=== PATIENT | male | born 1970 | race Two or more races ===

== ENCOUNTER 2019-04-23 14:30 | Emergency (ER) | payer SELFPAY ==
[~2019-04-23] VITALS: Ht 188 cm; Wt 86.2 kg
[2019-04-23 14:49] VITALS: BP 181/117
== END 2019-04-23 16:52 | disposition home or self-care (01) ==
LOC: ER 14:30
DX: S63.502A Unspecified sprain of left wrist, initial encounter (principal); S80.01XA Contusion of right knee, initial encounter; V43.52XA Car driver injured in collision with other type car in traffic accident, initial encounter; Y93.89 Activity, other specified; Y99.8 Other external cause status; Y92.410 Unspecified street and highway as the place of occurrence of the external cause
CPT/HCPCS: 71101; 73110; 73562

== ENCOUNTER 2020-06-20 10:00 | Inpatient (IN) | payer MEDICAID, OTHER ==
[~2020-06-20] VITALS: Ht 188 cm; Wt 74.0 kg
[2020-06-20] MEDS ORDERED: SODIUM CHLORIDE 0.9% 1,000 ML IV ONE ×2 (10:15)
[2020-06-20 10:28] LABS: Basophils # (auto) 0 10 ^3/uL (0-0.2); Basophils % (auto) 0.2 % (0.0-2.0); Eosinophils # (auto) 0 10 ^3/uL (0-0.8); Eosinophils % (auto) 0.1 % (0.0-7.0); Hematocrit 39.2 % (41.0-53.0); Hemoglobin 13.1 g/dL (13.5-17.5); Lymphocytes # (auto) 0.8 10 ^3/uL (0.4-5.4); Lymphocytes % (auto) 11.2 % (10.0-50.0); Mean Corpuscular Hemoglobin 30.3 pg (28.0-32.0); Mean Corpuscular Hgb Conc. 33.3 g/dL (32.0-36.0); Mean Corpuscular Volume 90.7 fL (80.0-100.0); Monocytes # (auto) 0.5 10 ^3/uL (0-1.3); Monocytes % (auto) 7.1 % (0.0-12.0); Neutrophils # (auto) 5.6 10 ^3/uL (1.6-8.6); Neutrophils % (auto) 81.4 % (37.0-80.0); Nucleated Red Blood Cells % 0.1 %; Platelet Count (auto) 343 10^3/uL (140-450); Red Blood Cells 4.32 10^6/uL (4.5-5.90); White Blood Cell 6.9 10^3/uL (4.4-10.8)
[2020-06-20 10:53] LABS: Albumin 3.2 g/dL (3.4-5.0); Anion Gap 10 (5-15); Blood Alcohol < 3.0 mg/dL (0-5); Blood Urea Nitrogen 13 mg/dL (7-18); Calcium 9.4 mg/dL (8.5-10.1); Carbon Dioxide 24 mmol/L (21-32); Chloride 105 mmol/L (98-107); Glucose 164 mg/dL (74-106); Potassium 3.6 mmol/L (3.5-5.1); Sodium 139 mmol/L (136-145)
[2020-06-20 10:57] LABS: Alanine Aminotransferase 14 U/L (16-61); Alkaline Phosphatase 92 U/L (45-117); Aspartate Aminotransferase 17 U/L (15-37); BUN/Creatinine Ratio 13.3; Bilirubin, Total 0.8 mg/dL (0.2-1.0); GFR African American 105 mL/min; GFR Non-African American 87 mL/min; Total Protein 7.8 g/dL (6.4-8.2)
[2020-06-20] MEDS ORDERED: MORPHINE SULF INJ 2 MG/ML SYRINGE 1ML IV PRN (13:00)
[2020-06-20] MEDS ORDERED: NITROGLYCERIN 0.4 MG SL TAB SL PRN (13:00)
[2020-06-20 13:54] LABS: Folate (Folic Acid) 7.84 ng/mL (5.38-24)
[2020-06-20] MEDS: HYDROcodone-ACET 5/325MG TAB PO PRN (14:12)
[2020-06-20] MEDS: FOLIC ACID 1 MG, MULTIPLE VITAMIN 10 ML, MAGNESIUM SULF SDV 50% 8 MEQ, THIAMINE INJ 100... INJ SCH ×5 (14:12)
[2020-06-20] MEDS: MORPHINE SULF INJ 2 MG/ML SYRINGE 1ML IV PRN ×2 (16:09→20:37)
[2020-06-20] MEDS ORDERED: ONDANSETRON HCL 4 MG/2 ML VIAL IV PRN (16:15)
[2020-06-20] MEDS ORDERED: LORazepam 2MG/ML-1ML VIAL IV PRN (18:45)
[2020-06-20] MEDS ORDERED: TEMAZEPAM 15 MG CAP PO ONE (21:45)
[2020-06-20] MEDS ORDERED: LORazepam 2MG/ML-1ML VIAL IV ONE (23:30)
[2020-06-20] MEDS ORDERED: diphenhdrAMINE HCL 50 MG/1 ML VL IV ONE (23:30)
[2020-06-20] MEDS ORDERED: HALOPERIDOL LACTATE 5 MG/ML INJ VIAL IM ONE (23:30)
[2020-06-21] MEDS ORDERED: diphenhdrAMINE HCL 50 MG/1 ML VL IV ONE (01:00)
[2020-06-21 04:09] VITALS: BP 135/97
[2020-06-21 09:00] VITALS: BP 170/96
[2020-06-21] MEDS: cefTRIAXone 1GM/50ML D5W 50 ML IV SCH (09:01)
[2020-06-21] MEDS ORDERED: HALOPERIDOL LACTATE 5 MG/ML INJ VIAL IM PRN (10:00)
[2020-06-21 11:27] LABS: Urine Bacteria NONE SEEN /hpf (None Seen); Urine Blood 1+ /uL (Negative); Urine Mucus FEW (None Seen); Urine Specific Gravity 1.017 (1.001-1.035); Urine WBC 1 /hpf (0 - 3)
[2020-06-21 11:48] LABS: Alcohol, Urine < 3.0 mg/dL (0-10); Amphetamine Screen, Urine NEGATIVE (NEGATIVE); Barbiturate Scree,Urine NEGATIVE (NEGATIVE); Benzodiazephine Screen, Urine NEGATIVE (NEGATIVE); Cannabinoid Screen, Urine POSITIVE (NEGATIVE); Cocaine Screen, Urine NEGATIVE (NEGATIVE); Opiate Scree,Urine NEGATIVE (NEGATIVE); Phencyclidine Screen, Urine NEGATIVE (NEGATIVE)
[2020-06-21 13:00] VITALS: BP 149/95
[2020-06-21] MEDS: FOLIC ACID 1 MG, MULTIPLE VITAMIN 10 ML, MAGNESIUM SULF SDV 50% 8 MEQ, THIAMINE INJ 100... INJ SCH ×5 (14:10)
[2020-06-21] MEDS: metroNIDAZOLE 500MG/100ML 100 ML IV SCH ×2 (14:10→21:21)
[2020-06-21 17:00] VITALS: BP 160/75
[2020-06-21] MEDS: FAMOTIDINE (10MG/ML) 2ML VL IV SCH (21:21)
[2020-06-21] MEDS: HYDROcodone-ACET 5/325MG TAB PO PRN (21:41)
[2020-06-21 21:44] VITALS: BP 135/72
[2020-06-21] MEDS: MORPHINE SULF INJ 2 MG/ML SYRINGE 1ML IV PRN (23:47)
[2020-06-22 04:41] VITALS: BP 150/92
[2020-06-22] MEDS: MORPHINE SULF INJ 2 MG/ML SYRINGE 1ML IV PRN ×4 (04:46→20:47)
[2020-06-22] MEDS: metroNIDAZOLE 500MG/100ML 100 ML IV SCH ×3 (05:17→21:52)
[2020-06-22 07:32] LABS: Cholesterol 213 mg/dL (< 200)
[2020-06-22 07:35] LABS: HDL Cholesterol 55 mg/dL (40-59); LDL Cholesterol 144 mg/dL (< 100); Triglycerides 76 mg/dL (< 150)
[2020-06-22] MEDS: cefTRIAXone 1GM/50ML D5W 50 ML IV SCH (08:32)
[2020-06-22 09:00] VITALS: BP 167/95
[2020-06-22] MEDS: FAMOTIDINE (10MG/ML) 2ML VL IV SCH ×2 (12:08→21:52)
[2020-06-22] MEDS ORDERED: GASTROGRAFIN 120 ML SOL ONE (12:21)
[2020-06-22 12:32] VITALS: BP 184/108
[2020-06-22] MEDS: FOLIC ACID 1 MG, MULTIPLE VITAMIN 10 ML, MAGNESIUM SULF SDV 50% 8 MEQ, THIAMINE INJ 100... INJ SCH ×5 (13:46)
[2020-06-22] MEDS ORDERED: ERGOCALCIFEROL 50,000 UNIT(1.25MG) CAP PO SCH (14:45)
[2020-06-22] MEDS ORDERED: LISINOPRIL 20 MG TAB PO ONE (14:45)
[2020-06-22] MEDS ORDERED: hydrALAZINE HCL 20 MG/ML VL IV PRN (14:45)
[2020-06-22] MEDS ORDERED: DEXTROSE (50%) 50ML SYRG IV PRN (14:45)
[2020-06-22 15:38] LABS: Hepatitis B Surface Antibody Negative
[2020-06-22 16:17] LABS: Hepatitis A Total Antibody Negative
[2020-06-22 16:36] LABS: Hepatitis B Core Total AB Negative; Hepatitis B Surface Antigen Negative (Negative); Hepatitis C Antibody Negative (Negative)
[2020-06-22 16:49] VITALS: BP 161/97
[2020-06-22] MEDS: ACCU-CHEK COMFORT CURVE STRIP VI SCH ×2 (17:54→21:52)
[2020-06-22] MEDS: InsuLIN REG 1unit/0.01ml Soln (100units/ml) SC SCH ×2 (17:55→21:53)
[2020-06-22] MEDS: HYDROcodone-ACET 5/325MG TAB PO PRN (18:31)
[2020-06-22 21:49] VITALS: BP 141/72
[2020-06-22] MEDS ORDERED: ATORVASTATIN 20 MG TAB PO SCH (22:00)
[2020-06-23] MEDS: MORPHINE SULF INJ 2 MG/ML SYRINGE 1ML IV PRN ×2 (00:50→05:43)
[2020-06-23] MEDS: HYDROcodone-ACET 5/325MG TAB PO PRN ×2 (02:45→08:21)
[2020-06-23 04:25] LABS: Basophils # (auto) 0 10 ^3/uL (0-0.2); Basophils % (auto) 0.3 % (0.0-2.0); Eosinophils # (auto) 0.1 10 ^3/uL (0-0.8); Eosinophils % (auto) 0.9 % (0.0-7.0); Lymphocytes # (auto) 1.2 10 ^3/uL (0.4-5.4); Lymphocytes % (auto) 22.1 % (10.0-50.0); Mean Corpuscular Hemoglobin 30.5 pg (28.0-32.0); Mean Corpuscular Hgb Conc. 34.2 g/dL (32.0-36.0); Monocytes # (auto) 0.4 10 ^3/uL (0-1.3); Monocytes % (auto) 8.1 % (0.0-12.0); Neutrophils # (auto) 3.7 10 ^3/uL (1.6-8.6); Neutrophils % (auto) 68.6 % (37.0-80.0); Nucleated Red Blood Cells % 0.1 %; Platelet Count (auto) 333 10^3/uL (140-450); Red Blood Cells 3.93 10^6/uL (4.5-5.90); Red Cell Distribution Width 15.2 % (11.8-14.3); White Blood Cell 5.4 10^3/uL (4.4-10.8)
[2020-06-23 04:38] LABS: INR 1.04 (0.9-1.15)
[2020-06-23 04:41] LABS: Potassium 3.1 mmol/L (3.5-5.1)
[2020-06-23 04:47] LABS: Albumin 2.9 g/dL (3.4-5.0); BUN/Creatinine Ratio 9.7; Bilirubin, Total 0.6 mg/dL (0.2-1.0); Calcium 8.6 mg/dL (8.5-10.1); Magnesium 2.5 mg/dL (1.6-2.6); Total Protein 6.9 g/dL (6.4-8.2)
[2020-06-23] MEDS: metroNIDAZOLE 500MG/100ML 100 ML IV SCH (05:43)
[2020-06-23 05:52] VITALS: BP 157/95
[2020-06-23] MEDS: ACCU-CHEK COMFORT CURVE STRIP VI SCH (06:40)
[2020-06-23] MEDS: InsuLIN REG 1unit/0.01ml Soln (100units/ml) SC SCH (06:41)
[2020-06-23 08:48] VITALS: BP 161/97
[2020-06-23] MEDS: cefTRIAXone 1GM/50ML D5W 50 ML IV SCH (09:20)
[2020-06-23] MEDS ORDERED: CHOLECALCIFEROL (VITD3) 2,000 UNIT CAP/TAB PO SCH (10:00)
[2020-06-23] MEDS ORDERED: POTASSIUM CHL 20 Meq TABLET PO ONE (10:00)
[2020-06-23] MEDS ORDERED: LISINOPRIL 20 MG TAB PO SCH (10:00)
[2020-06-23] MEDS: FAMOTIDINE (10MG/ML) 2ML VL IV SCH (11:51)
== END 2020-06-23 11:50 | disposition left against medical advice (07) | DRG 52 ==
LOC: ER 10:00 → TELE 10:01 → TELE-WESTW 06-21 02:36
PROVIDERS: ADMIT Nurse Practitioner Acute Care; ATTEND Internal Medicine
DX: G92 Toxic encephalopathy (principal); K56.0 Paralytic ileus; Z78.1 Physical restraint status; Z20.822 Contact with and (suspected) exposure to COVID-19; K80.20 Calculus of gallbladder without cholecystitis without obstruction; E55.9 Vitamin D deficiency, unspecified; I10 Essential (primary) hypertension; E78.5 Hyperlipidemia, unspecified; K57.30 Diverticulosis of large intestine without perforation or abscess without bleeding; T50.905A Adverse effect of unspecified drugs, medicaments and biological substances, initial encounter; Z53.29 Procedure and treatment not carried out because of patient's decision for other reasons; E11.9 Type 2 diabetes mellitus without complications; F17.200 Nicotine dependence, unspecified, uncomplicated; Z83.3 Family history of diabetes mellitus; Y92.89 Other specified places as the place of occurrence of the external cause
CPT/HCPCS: 36415; 70450; 71045; 72100; 74176; 74250; 78226; 80053; 80061; 80307; 80320; 81001; 82306; 82607; 82746; 82962; 83036; 83735; 84425; 84443; 84484; 85025; 85610; 86704; 86706; 86708; 86803; 87340; 87426; 95819; 96361; 96365; G0378; J0696; J1815; J3490

== ENCOUNTER 2023-06-12 20:50 | Emergency (ER) | payer MEDICAID ==
[~2023-06-12] VITALS: Ht 188 cm; Wt 113.0 kg
[2023-06-12] MEDS: IOHEXOL 300 MG/ML 100ML BOTTLE IJ ONE (21:08)
[2023-06-12 21:30] VITALS: PULSE 115; RESP 23; O2SAT 98
[2023-06-12] MEDS: CLINDAMYCIN 900MG IV 50 ML IV ONE (21:40)
[2023-06-12 21:55] LABS: Basophils # (auto) 0.1 10 ^3/uL (0-0.2); Basophils % (auto) 0.5 % (0.0-2.0); Eosinophils # (auto) 0 10 ^3/uL (0-0.8); Eosinophils % (auto) 0.1 % (0.0-7.0); Hematocrit 42.6 % (41.0-53.0); Hemoglobin 14.4 g/dL (13.5-17.5); Lymphocytes # (auto) 1.3 10 ^3/uL (0.4-5.4); Mean Corpuscular Hemoglobin 31.3 pg (28.0-32.0); Mean Corpuscular Hgb Conc. 33.7 g/dL (32.0-36.0); Mean Corpuscular Volume 92.9 fL (80.0-100.0); Monocytes # (auto) 0.8 10 ^3/uL (0-1.3); Monocytes % (auto) 5.8 % (0.0-12.0); Neutrophils # (auto) 12.2 10 ^3/uL (1.6-8.6); Neutrophils % (auto) 84.6 % (37.0-80.0); Red Blood Cells 4.59 10^6/uL (4.5-5.90); Red Cell Distribution Width 14.9 % (11.8-14.3); White Blood Cell 14.4 10^3/uL (4.4-10.8)
[2023-06-12 21:56] LABS: Rapid Strep A Screen-Throat Negative
[2023-06-12 22:09] LABS: Alanine Aminotransferase 10 U/L (7-40); Albumin 4.1 g/dL (3.2-4.8); Alkaline Phosphatase 109 U/L (46-116); Anion Gap 6 (5-15); Aspartate Aminotransferase < 8 U/L (13-40); BUN/Creatinine Ratio 8.8 (10.0-20.0); Blood Urea Nitrogen 12 mg/dL (9-23); Calcium 9.3 mg/dL (8.5-10.1); Carbon Dioxide 24 mmol/L (20-30); Chloride 100 mmol/L (98-107); Glucose 298 mg/dL (74-106); Sodium 130 mmol/L (136-145)
[2023-06-12 22:10] LABS: Bilirubin, Total 1.2 mg/dL (0.2-1.0); Total Protein 7.3 g/dL (5.7-8.2)
[2023-06-13] MEDS: KETOROLAC TROMETH 30 MG/ML 1ML VIAL IV ONE (00:05)
[2023-06-13] MEDS: methylPREDNISolone SOD SUCC 125 MG/2 ML VL IV ONE (00:05)
[2023-06-13] MEDS: SODIUM CHLORIDE 0.9% 1,000 ML IV ONE (00:06)
[2023-06-13 00:54] VITALS: BP 138/93; PULSE 108; RESP 12; TEMP 98.4; O2SAT 95
== END 2023-06-13 01:12 | disposition short-term general hospital (02) ==
LOC: ER 20:50
DX: J36 Peritonsillar abscess (principal); E11.9 Type 2 diabetes mellitus without complications; I10 Essential (primary) hypertension
CPT/HCPCS: 36415; 70491; 80053; 85025; 87070; 87880; 96361; 96365; 96375; 99285; J1885; J2930; J3490; J7030; Q9967

== ENCOUNTER 2023-11-15 17:18 | Inpatient (IN) | payer MEDICAID ==
[~2023-11-15] VITALS: Ht 188 cm; Wt 99.1 kg
[2023-11-15 17:40] LABS: Basophils # (auto) 0.1 10 ^3/uL (0-0.2); Basophils % (auto) 0.5 % (0.0-2.0); Eosinophils # (auto) 0 10 ^3/uL (0-0.8); Eosinophils % (auto) 0.3 % (0.0-7.0); Hematocrit 42.4 % (41.0-53.0); Hemoglobin 14.7 g/dL (13.5-17.5); Lymphocytes # (auto) 1.1 10 ^3/uL (0.4-5.4); Lymphocytes % (auto) 10.8 % (10.0-50.0); Mean Corpuscular Hemoglobin 31.6 pg (28.0-32.0); Mean Corpuscular Hgb Conc. 34.5 g/dL (32.0-36.0); Mean Corpuscular Volume 91.6 fL (80.0-100.0); Monocytes # (auto) 0.5 10 ^3/uL (0-1.3); Monocytes % (auto) 4.8 % (0.0-12.0); Neutrophils # (auto) 8.9 10 ^3/uL (1.6-8.6); Neutrophils % (auto) 83.6 % (37.0-80.0); Red Blood Cells 4.64 10^6/uL (4.5-5.90); Red Cell Distribution Width 14.1 % (11.8-14.3); White Blood Cell 10.6 10^3/uL (4.4-10.8)
[2023-11-15 17:54] LABS: INR 0.99 (0.9-1.15); Partial Thromboplastin Time 28.4 SEC (24.5-34.5); Prothrombin Time 10.5 sec (9.3-11.8)
[2023-11-15 18:13] LABS: Alanine Aminotransferase 13 U/L (7-40); Albumin 4.5 g/dL (3.2-4.8); Alkaline Phosphatase 104 U/L (46-116); Anion Gap 9 (5-15); Aspartate Aminotransferase 13 U/L (13-40); BUN/Creatinine Ratio 12.8 (10.0-20.0); Bilirubin, Total 0.7 mg/dL (0.2-1.0); Blood Urea Nitrogen 21 mg/dL (9-23); Calcium 10.1 mg/dL (8.7-10.4); Carbon Dioxide 26 mmol/L (20-30); Chloride 102 mmol/L (98-107); Glucose 354 mg/dL (74-106); Potassium 3.9 mmol/L (3.5-5.1); Sodium 137 mmol/L (136-145)
[2023-11-15 18:14] LABS: Total Protein 7.5 g/dL (5.7-8.2)
[2023-11-15] MEDS: MORPHINE SULFATE 4 MG/ML SYR/VIAL IV ONE (18:38)
[2023-11-15] MEDS: ONDANSETRON HCL 4 MG/2 ML VIAL IV ONE (18:41)
[2023-11-15] MEDS: ASPirin 325 MG TAB PO ONE (18:41)
[2023-11-15] MEDS: SODIUM CHLORIDE 0.9% 1,000 ML IV ONE ×2 (18:45→19:06)
[2023-11-15] MEDS: cloNIDine HCL 0.1 MG TAB PO ONE (19:27)
[2023-11-15 19:30] VITALS: PULSE 92; RESP 17; O2SAT 96
[2023-11-15] MEDS: InsuLIN REG 1unit/0.01ml Soln (100units/ml) IV ONE (19:41)
[2023-11-15] MEDS ORDERED: HYDROmorphone HCL 2 MG/ML VL/or syr IV PRN (19:45)
[2023-11-15] MEDS ORDERED: NITROGLYCERIN 0.4 MG SL TAB SL PRN (19:45)
[2023-11-15] MEDS ORDERED: MORPHINE SULFATE INJ 2 MG/ml SYRG IV PRN (19:45)
[2023-11-15] MEDS ORDERED: ONDANSETRON HCL 4 MG/2 ML VIAL IV PRN (19:45)
[2023-11-15] MEDS ORDERED: ACETAMINOPHEN 325 MG TAB PO PRN (19:45)
[2023-11-15] MEDS ORDERED: DEXTROSE (50%) 50ML SYRG IV PRN (19:45)
[2023-11-15] MEDS: ACETAMINOPHEN 325 MG TAB PO ONE (20:07)
[2023-11-15] MEDS: LACTATED RINGER'S 1,000 ML IV ONE (20:07)
[2023-11-15] MEDS: InsuLIN REG 1unit/0.01ml Soln (100units/ml) SC SCH (22:00)
[2023-11-15] MEDS: SODIUM CHLOR 0.9% PF (SALINE LOCK) 10ML VIAL/SYR IV SCH (22:00)
[2023-11-15] MEDS: ACCU-CHEK COMFORT CURVE STRIP VI SCH (22:00)
[2023-11-15] MEDS: HYDROcodone-ACET 5/325MG TAB PO PRN (22:50)
[2023-11-15 23:43] VITALS: BP 151/92; PULSE 63; PULSE 81; RESP 18; TEMP 98.1; O2SAT 96; O2SAT 98
[2023-11-15 23:50] VITALS: PULSE 84
[2023-11-15 23:52] LABS: Creatinine, Urine 141.55 mg/dL (30.0-125.0)
[2023-11-16] VITALS (8 sets, daily range): BP systolic 103–150; BP diastolic 36–98; PULSE 64–103; RESP 14–22; TEMP 97.6–98.9; O2SAT 92–99
[2023-11-16] MEDS: ENOXAPARIN SOD 40 MG/0.4 ML SYRINGE SC SCH (09:46)
[2023-11-16] MEDS: FAMOTIDINE 20 MG TAB PO SCH (09:46)
[2023-11-16 10:25] LABS: Chloride 106 mmol/L (98-107); Potassium 3.6 mmol/L (3.5-5.1); Sodium 139 mmol/L (136-145)
[2023-11-16 10:26] LABS: Anion Gap 4 (5-15); Calcium 9.8 mg/dL (8.7-10.4); Carbon Dioxide 29 mmol/L (20-30)
[2023-11-16 10:31] LABS: BUN/Creatinine Ratio 11.5 (10.0-20.0); Blood Urea Nitrogen 13 mg/dL (9-23); Triglycerides 91 mg/dL (< 150)
[2023-11-16 10:32] LABS: LDL Cholesterol 192 mg/dL (< 100)
[2023-11-16 10:33] LABS: Cholesterol 249 mg/dL (< 200); HDL Cholesterol 41 mg/dL (40-59)
[2023-11-16 10:35] LABS: Glucose 144 mg/dL (74-106)
[2023-11-16] MEDS: LISINOPRIL 5 MG TAB PO ONE (11:00)
[2023-11-16] MEDS: NIFEdipine ER 30 MG TAB PO SCH (11:26)
[2023-11-16 19:52] LABS: Urine Bacteria None Seen /hpf (None Seen)
[2023-11-16 20:14] LABS: Urine Blood Negative /uL (Negative); Urine Clarity Clear (Clear); Urine Color Light-Yellow (Yellow); Urine Hyaline Cast FEW /lpf (0 - 2); Urine Protein, UAD TRACE (Negative); Urine Specific Gravity 1.015 (1.001-1.035); Urine Urobilinogen 2 mg/dL (Negative); Urine WBC 5 /hpf (0 - 3); Urine pH 6.5 (5.0-9.0)
[2023-11-16 20:20] LABS: Sodium Urine 128 mmol/L (40-220)
[2023-11-16 20:25] LABS: Protein, Urine 19.2 mg/dL (0.0-11.9)
[2023-11-16 20:27] LABS: Amphetamine Screen, Urine Neg (NEGATIVE); Barbiturate Scree,Urine Neg (NEGATIVE); Benzodiazephine Screen, Urine Neg (NEGATIVE); Cannabinoid Screen, Urine Pos (NEGATIVE); Cocaine Screen, Urine Neg (NEGATIVE); Opiate Scree,Urine Neg (NEGATIVE); Phencyclidine Screen, Urine Neg (NEGATIVE)
[2023-11-16 20:28] LABS: Creatinine, Urine 138.57 mg/dL (30.0-125.0)
[2023-11-16] MEDS: CARVEDILOL 3.125 MG TAB PO ONE (20:48)
[2023-11-16] MEDS: MELATONIN 5 MG TAB PO ONE (22:01)
[2023-11-17 01:00] VITALS: BP 126/76; PULSE 92; RESP 20; TEMP 98.7; O2SAT 99
[2023-11-17 05:00] VITALS: BP 119/82; PULSE 77; RESP 20; TEMP 98.4; O2SAT 98
[2023-11-17 07:54] LABS: Basophils # (auto) 0 10 ^3/uL (0-0.2); Basophils % (auto) 0.4 % (0.0-2.0); Eosinophils # (auto) 0.1 10 ^3/uL (0-0.8); Eosinophils % (auto) 1.2 % (0.0-7.0); Hematocrit 41.5 % (41.0-53.0); Hemoglobin 14.4 g/dL (13.5-17.5); Lymphocytes # (auto) 1.7 10 ^3/uL (0.4-5.4); Lymphocytes % (auto) 25.3 % (10.0-50.0); Mean Corpuscular Hemoglobin 31.6 pg (28.0-32.0); Mean Corpuscular Hgb Conc. 34.7 g/dL (32.0-36.0); Mean Corpuscular Volume 91.1 fL (80.0-100.0); Monocytes # (auto) 0.4 10 ^3/uL (0-1.3); Monocytes % (auto) 6.3 % (0.0-12.0); Neutrophils # (auto) 4.6 10 ^3/uL (1.6-8.6); Neutrophils % (auto) 66.8 % (37.0-80.0); Nucleated Red Blood Cells % 0.1 %; Red Blood Cells 4.55 10^6/uL (4.5-5.90); Red Cell Distribution Width 14.1 % (11.8-14.3); White Blood Cell 6.9 10^3/uL (4.4-10.8)
[2023-11-17 08:00] VITALS: PULSE 78; PULSE 84; RESP 20
[2023-11-17 08:06] LABS: Alkaline Phosphatase 88 U/L (46-116); Anion Gap 8 (5-15); Aspartate Aminotransferase 10 U/L (13-40); Blood Urea Nitrogen 14 mg/dL (9-23); Calcium 9.7 mg/dL (8.7-10.4); Carbon Dioxide 26 mmol/L (20-30); Chloride 106 mmol/L (98-107); Glucose 140 mg/dL (74-106); Potassium 3.7 mmol/L (3.5-5.1); Sodium 140 mmol/L (136-145)
[2023-11-17 08:07] LABS: Alanine Aminotransferase 9 U/L (7-40); Albumin 4.1 g/dL (3.2-4.8); Bilirubin, Total 1.1 mg/dL (0.2-1.0); Total Protein 7.2 g/dL (5.7-8.2)
[2023-11-17 09:00] VITALS: BP 127/87; PULSE 96; RESP 20; TEMP 98.5; O2SAT 97
[2023-11-17] MEDS: CARVEDILOL 3.125 MG TAB PO SCH (09:41)
[2023-11-17] MEDS ORDERED: BLOO1KIT60 XX ×2 (09:44→10:45)
[2023-11-17] MEDS: LISINOPRIL 5 MG TAB PO SCH (10:00)
[2023-11-17] MEDS ORDERED: CARV-214 PO (10:45)
[2023-11-17] MEDS ORDERED: NIFE1TAB31 PO (10:45)
[2023-11-17] MEDS ORDERED: METF-929 PO (10:45)
[2023-11-17] MEDS ORDERED: LISI-275 PO (10:45)
[2023-11-17 13:16] VITALS: BP 116/75; PULSE 97; RESP 20; TEMP 99; O2SAT 98
== END 2023-11-17 15:00 | disposition home or self-care (01) | DRG 199 ==
LOC: ER 17:18 → TELE 19:39 → TELE-EAST 19:39
PROVIDERS: ADMIT Internal Medicine Geriatric Medicine; ATTEND Internal Medicine Geriatric Medicine
DX: I16.0 Hypertensive urgency (principal); N17.0 Acute kidney failure with tubular necrosis; I21.A1 Myocardial infarction type 2; E11.22 Type 2 diabetes mellitus with diabetic chronic kidney disease; E11.65 Type 2 diabetes mellitus with hyperglycemia; E78.5 Hyperlipidemia, unspecified; K21.9 Gastro-esophageal reflux disease without esophagitis; I25.10 Atherosclerotic heart disease of native coronary artery without angina pectoris; I70.1 Atherosclerosis of renal artery; F12.10 Cannabis abuse, uncomplicated; I12.9 Hypertensive chronic kidney disease with stage 1 through stage 4 chronic kidney disease, or unspecified chronic kidney disease; N18.9 Chronic kidney disease, unspecified; Z83.3 Family history of diabetes mellitus; Z80.0 Family history of malignant neoplasm of digestive organs; D35.00 Benign neoplasm of unspecified adrenal gland
CPT/HCPCS: 36415; 71045; 76775; 80048; 80053; 80061; 80307; 81001; 82533; 82570; 82962; 83036; 83835; 83880; 84156; 84300; 84443; 84484; 85025; 85610; 85730; 93005; 93306; 93976; 96361; 96374; 96375; G0378; J1815; J2405

== ENCOUNTER 2024-05-30 17:31 | Emergency (ER) | payer MEDICAID ==
[~2024-05-30] VITALS: Ht 188 cm; Wt 91.0 kg
[~2024-05-30 17:31] MED LIST: BLOO1KIT60 XX; CARV-214 PO; LISI-275 PO; METF-929 PO; NIFE1TAB31 PO
--- NOTE | 2024-05-30 17:37 | ECG ---
[facility] Test Date: 2024-05-30 Test Time: 17:36:29 Pat Name: LUH PATEL Department: ER Room: Gender: M Tank Washer: KRISTINA : 1970 Requested By: BILLY SOLORZANO Order Number: [id number] Reading MD: Measurements Intervals [place] Rate: 95 P: 57 RI: 142 QRS: 26 QRSD: 84 T: 81 QT: 341 QTc: 429 Interpretive Statements Sinus rhythm Please click the below link to view image of tracing.
[2024-05-30] MEDS: NITROGLYCERIN 2% OINT 1GM PKG TD ONE (18:02)
[2024-05-30 18:05] LABS: Basophils # (auto) 0 10 ^3/uL (0-0.2); Basophils % (auto) 0.4 % (0.0-2.0); Eosinophils # (auto) 0.1 10 ^3/uL (0-0.8); Eosinophils % (auto) 1.4 % (0.0-7.0); Hematocrit 44.9 % (41.0-53.0); Hemoglobin 15.6 g/dL (13.5-17.5); Lymphocytes # (auto) 2.6 10 ^3/uL (0.4-5.4); Lymphocytes % (auto) 28.4 % (10.0-50.0); Mean Corpuscular Hemoglobin 31.2 pg (28.0-32.0); Mean Corpuscular Hgb Conc. 34.7 g/dL (32.0-36.0); Mean Corpuscular Volume 89.8 fL (80.0-100.0); Monocytes # (auto) 0.6 10 ^3/uL (0-1.3); Monocytes % (auto) 6.9 % (0.0-12.0); Neutrophils # (auto) 5.8 10 ^3/uL (1.6-8.6); Neutrophils % (auto) 62.9 % (37.0-80.0); Nucleated Red Blood Cells % 0.1 %; Platelet Count (auto) 291 10^3/uL (140-450); Red Cell Distribution Width 14.2 % (11.8-14.3); White Blood Cell 9.3 10^3/uL (4.4-10.8)
--- NOTE | 2024-05-30 18:43 | ED.PDOC ---
History of Present Illness HPI Comments 54 y/o M, with a DL, CKF, DM, GERD, HLD, HTN, STEMI, chronic pain syndrome, diverticulitis, and left renal artery stenosis, presents with c/o chest and LUQ abdominal pain, dizziness, nausea, bilateral hand and feet numbness, and fatigue for 1x week, today. Patient endorses on symptoms worsening and being no longer able to tolerate it, today, after initial gradual onset a week ago. He comments on pain being pressure-like in quality and kim to "someone sitting on his chest." He denies having any shortness of breath, vision or speech changes, vomiting, fever, chills, or other associated symptoms or modifiers at this time. Chief Complaint: Chest Pain Time Seen by MD: 18:20 Primary Care Provider: UNKNOWN Reviewed Notes: Nurses Notes, Medications, Allergies Allergies: Coded Allergies: NO KNOWN ALLERGIES (Unverified , 04/23/19) Home Meds Active Scripts Famotidine (PEPCID TABLET) 20 Mg Tb, 1 TAB PO BID PRN for 30 Days, #60 TAB 5 Re fills Prov:WILTON OSULLIVAN MD 05/30/24 Gabapentin (Once-Daily) (Gabapentin) 300 Mg Tab, 300 MG PO Q6HP PRN for 10 Days, #40 TAB 2 Refills Prov:WILTON OSULLIVAN MD 05/30/24 Lisinopril (Lisinopril) 5 Mg Tab, 5 MG PO DAILY for 30 Days, #30 TAB 3 Refills Prov:GIOVANI CATES RESIDENT 11/17/23 Carvedilol (COREG) 3.125 Mg Tab, 6.25 MG PO Q12HR for 30 Days, #60 TAB 3 Refills Prov:GIOVANI CATES RESIDENT 11/17/23 Nifedipine (Nifedipine Er) 30 Mg Tab, 60 MG PO DAILY for 30 Days, #60 TAB 3 Refills Prov:GIOVANI CATES 11/17/23 Metformin HCl (Metformin Hydrochloride) 1,000 Mg Tab, 1000 MG PO BID for 30 Days, #60 TAB 3 Refills Prov:GIOVANI CATES 11/17/23 Blood Glucose Monitoring Suppl (D-Care Glucometer Kit/Glu W/Device) 1 Kit Kit, KIT XX, #1 Measure Bloodglucose before eating Prov:GIOVANI CATES 11/17/23 Blood Glucose Monitoring Suppl (D-Care Glucometer Kit/Glu W/Device) 1 Kit Kit, KIT XX, #1 Prov:CHRISSY BAILON MD 11/17/23 Information Source: Patient Mode of Arrival: Ambulatory Severity: Moderate Timing: Weeks Duration: Since onset Prehospital treatment: None Past Medical History PAST MEDICAL HISTORY: CKF, DM, GERD, High Lipids, HTN, AR (NSTEMI) Past Medical History (Other): DL, chronic pain syndrome, diverticulitis, left renal artery stenosis Surgical History (Other): spinal surgery Family History Family History: Reviewed,noncontributory to illness Social History Smoker: Non-Smoker Alcohol: Denies ETOH Use Drugs: Marijuana Lives In: Home All Other Systems: Reviewed and Negative (negative unless otherwise stated in HPI) Physical Exam General Appearance: Mild Distress, No Apparent Distress, Normal HEENT: Normal ENT Inspection, Pharynx Normal, TMs Normal Neck: Full Range of Motion, Non-Tender, Normal, Normal Inspection Respiratory: Chest Non-Tender, Lungs Clear, No Accessory Muscle Use, No Respiratory Distress, Normal Breath Sounds Cardiovascular: No Edema, No JVD, No Murmur, No Gallop, Normal Peripheral Pulses, Regular Rate/Rhythm Breast Exam: Deferred Gastrointestinal: LUQ (tenderness), No Organomegaly, No Pulsatile Mass, Normal Bowel Sounds, Soft, Tenderness (LUQ), Other (no rebound and guarding ) Genitalia: Deferred Pelvic: Deferred Rectal: Deferred Extremities: No calf tenderness, Normal capillary refill, Normal inspection, Normal range of motion, Non-tender, No pedal edema Musculoskeletal : Apperance: Normal Neurologic: Alert, creative services designer II-XII nml as Tested, No Motor Deficits, Normal Affect, Normal Mood, No Sensory Deficits Cerebellar Function: Normal Reflexes: Normal Skin: Dry, Normal Color, Warm Lymphatic: No Adenopathy Was a procedure done? Was a procedure done?: No EKG EKG : Pulse Rate (adult): 95 [place]: Normal Cardiac Rhythm: NSR Block: None Hypertrophy: None ST: Normal Differential Dx Considerations may include: AR, PE, ACS, viral syndrome, URI, dehydrations, electrolyte imbalance, musculoskeletal pain, gastritis, gastroenteritis X-Ray, Labs, Meds, VS Vital Signs Date Time Temp Pulse Resp B/P (MAP) Pulse Ox O2 Delivery O2 Flow Rate FiO2 05/30/24 20:39 98.2 108 19 116/75 (89) 99 98.2 05/30/24 18:57 120/95 05/30/24 18:43 95 05/30/24 18:26 97.9 113 100 120/95 (103) 100 97.9 05/30/24 18:26 113 18 100 Room Air 05/30/24 18:02 180/108 05/30/24 17:43 98.2 93 20 181/108 (132) 100 05/30/24 17:36 95 Lab Test 05/30/24 19:04 05/30/24 18:46 05/30/24 17:44 Range/Units POC Glucose 138 H 70-106 mg/dl Sodium Level 125 L 136-145 mmol/L Potassium Level 4.4 3.5-5.1 mmol/L Chloride Level 95 L 98-107 mmol/L Carbon Dioxide Level 21 20-31 mmol/L Anion Gap 9 5-15 Blood Urea Nitrogen 19 9-23 mg/dL Creatinine 1.28 0.700-1.30 mg/dL Glomerular Filtration Rate Calc 67 >90 mL/min BUN/Creatinine Ratio 14.8 10.0-20.0 Serum Glucose 136 H 74-106 mg/dL Calcium Level 9.9 8.7-10.4 mg/dL Total Bilirubin 0.7 0.2-1.0 mg/dL Aspartate Amino Transferase (AST) 20 13-40 U/L Alanine Aminotransferase (ALT) 12 7-40 U/L Alkaline Phosphatase 74 46-116 U/L Troponin I High Sensitivity < 3 L < 3 L </=54 ng/L Total Protein 8.2 5.7-8.2 g/dL Albumin 4.9 H 3.2-4.8 g/dL Lipase 57 H 12-53 U/L White Blood Count 9.3 4.4-10.8 10^3/uL Red Blood Count 5.00 4.5-5.90 10^6/uL Hemoglobin 15.6 13.5-17.5 g/dL Hematocrit 44.9 41.0-53.0 % Mean Corpuscular Volume 89.8 80.0-100.0 fL Mean Corpuscular Hemoglobin 31.2 28.0-32.0 pg Mean Corpuscular Hemoglobin Concent 34.7 32.0-36.0 g/dL Red Cell Distribution Width 14.2 11.8-14.3 % Platelet Count 291 140-450 10^3/uL Mean Platelet Volume 7.8 6.9-10.8 fL Neutrophils (%) (Auto) 62.9 37.0-80.0 % Lymphocytes (%) (Auto) 28.4 10.0-50.0 % Monocytes (%) (Auto) 6.9 0.0-12.0 % Eosinophils (%) (Auto) 1.4 0.0-7.0 % Basophils (%) (Auto) 0.4 0.0-2.0 % Neutrophils # (Auto) 5.8 1.6-8.6 10 ^3/uL Lymphocytes # (Auto) 2.6 0.4-5.4 10 ^3/uL Monocytes # (Auto) 0.6 0-1.3 10 ^3/uL Eosinophils # (Auto) 0.1 0-0.8 10 ^3/uL Basophils # (Auto) 0 0-0.2 10 ^3/uL Nucleated Red Blood Cells 0.1 % Current Medications Medications (Trade) Dose Ordered Sig/Tere Route Start Time Stop Time Status Last Admin Nitroglycerin (Nitro-Bid) 1 pkg ONCE ONCE TD 05/30/24 17:45 05/30/24 17:46 DC 05/30/24 18:02 Ondansetron HCl (Zofran Po) 4 mg ONCE ONCE PO 05/30/24 18:30 05/30/24 18:31 DC 05/30/24 18:57 Al Hydrox/Mg Hydrox/Simethicone (Maalox Plus) 30 ml ONCE ONCE PO 05/30/24 18:30 05/30/24 18:31 DC 05/30/24 18:53 Famotidine (Pepcid Tablet) 20 mg ONCE ONCE PO 05/30/24 18:30 05/30/24 18:31 DC 05/30/24 18:56 Ketorolac Tromethamine (Toradol Injection) 30 mg ONCE ONCE IM 05/30/24 20:45 05/30/24 20:46 DC 05/30/24 20:46 Time of 1ST Reevaluation: 18:50 Reevaluation 1ST: Unchanged Time of 2ND Reevaluation: 21:00 Reevaluation 2ND: Improved Patient Education/Counseling: Diagnosis, Treatment Family Education/Counseling: No Family Present Departure 1 Departure Time of Disposition: 21:00 Impression: Primary Impression: Hyponatremia Additional Impressions: LUQ abdominal pain Atypical chest pain Chronic low back pain Disposition: HOME / SELF CARE / HOMELESS Condition: Stable e-Prescriptions Famotidine (PEPCID TABLET) 20 Mg Tb 1 TAB PO BID PRN for 30 Days, #60 TAB 5 Refills Prov: WILTON OSULLIVAN MD 05/30/24 Gabapentin (Once-Daily) (Gabapentin) 300 Mg Tab 300 MG PO Q6HP PRN for 10 Days, #40 TAB 2 Refills Prov: WILTON OSULLIVAN MD 05/30/24 Discharged With: Self Comments I personally reviewed and interpreted the lab and imaging studies. Patient noted to be hyponatremic, I ordered an oral sodium chloride tablet. I reviewed the results with the patient and using shared decision making we decided on outpatient management with closed outpatient follow up. I did notify the patient that there was a risk that their condition could worsen and they agreed to immediately return to the Emergency Department for any worsening symptoms or concerns. Critical Care Note Critical Care Time?: No Stability Stability form required: No Heart Score Heart Score: Heart Score Response (Comments) Value History Moderate Suspicious 1 EKG Normal 0 Age 45-64 1 Risk Factors >3 or Hx ASHD 2 Troponin Normal limit 0 Total 4 I personally scribed for WILTON OSULLIVAN MD ([email or web address]) on 05/30/24 at 18:43. Electronically submitted by Heron Garsia ([email or web address]). WILTON OSULLIVAN MD May 30, 2024 18:43
--- NOTE | 2024-05-30 18:51 | DVH ---
CHEST RADIOGRAPH Indication: CP Technique: Single frontal view of the chest was obtained Comparison: XY CHEST PORTABLE on DOS: 11/15/23, CHEST PORTABLE on DOS: 06/20/20 FINDINGS: Lines and Tubes: None Lungs: No focal consolidation. Pleura: No effusion. No pneumothorax. Cardiomediastinal contours: Unremarkable Bones: No acute osseous abnormality. IMPRESSION: 1. No acute cardiopulmonary disease.
[2024-05-30] MEDS: MAALOX PLUS or MAALOX 30 ML PO ONE (18:53)
[2024-05-30] MEDS: HYDROcodone-ACET 10/325MG TAB PO ONE (18:55)
[2024-05-30] MEDS: FAMOTIDINE 20 MG TAB PO ONE (18:56)
[2024-05-30] MEDS: ONDANSETRON ODT 4 MG TAB PO ONE (18:57)
[2024-05-30 19:17] LABS: Alanine Aminotransferase 12 U/L (7-40); Alkaline Phosphatase 74 U/L (46-116); Anion Gap 9 (5-15); Aspartate Aminotransferase 20 U/L (13-40); BUN/Creatinine Ratio 14.8 (10.0-20.0); Blood Urea Nitrogen 19 mg/dL (9-23); Calcium 9.9 mg/dL (8.7-10.4); Carbon Dioxide 21 mmol/L (20-31); Potassium 4.4 mmol/L (3.5-5.1)
[2024-05-30 19:18] LABS: Albumin 4.9 g/dL (3.2-4.8); Bilirubin, Total 0.7 mg/dL (0.2-1.0); Chloride 95 mmol/L (98-107); Glucose 136 mg/dL (74-106); Sodium 125 mmol/L (136-145); Total Protein 8.2 g/dL (5.7-8.2)
[2024-05-30 19:45] LABS: Lipase 57 U/L (12-53)
[2024-05-30 20:39] VITALS: BP 116/75; PULSE 108; RESP 19; TEMP 98.2; O2SAT 99
[2024-05-30] MEDS ORDERED: FAMO20TA10 PO (20:42)
[2024-05-30] MEDS ORDERED: GABA300T4 PO (20:42)
[2024-05-30] MEDS: SODIUM CHLORIDE 1 GM TAB PO ONE (20:46)
[2024-05-30] MEDS: KETOROLAC TROMETH 30 MG/ML 1ML VIAL IM ONE (20:46)
== END 2024-05-30 20:58 | disposition home or self-care (01) ==
LOC: ER 17:31
DX: R10.12 Left upper quadrant pain (principal); R07.89 Other chest pain; G89.29 Other chronic pain; M54.59 Other low back pain; E87.1 Hypo-osmolality and hyponatremia; E11.9 Type 2 diabetes mellitus without complications; K21.9 Gastro-esophageal reflux disease without esophagitis; E78.5 Hyperlipidemia, unspecified; I12.9 Hypertensive chronic kidney disease with stage 1 through stage 4 chronic kidney disease, or unspecified chronic kidney disease; E11.22 Type 2 diabetes mellitus with diabetic chronic kidney disease; N18.9 Chronic kidney disease, unspecified; F12.90 Cannabis use, unspecified, uncomplicated; Z79.899 Other long term (current) drug therapy; Z98.890 Other specified postprocedural states
CPT/HCPCS: 36415; 71045; 80053; 82962; 83690; 84484; 85025; 93005; 96372; 99285; J1885; Q0162; 82947

== ENCOUNTER 2024-06-20 14:42 | Inpatient (IN) | payer MEDICAID ==
[~2024-06-20] VITALS: Ht 188 cm; Wt 93.2 kg
[~2024-06-20 14:42] MED LIST changes: +FAMO20TA10 PO; +GABA300T4 PO
--- NOTE | 2024-06-20 15:08 | ED.PDOC ---
HPI Comments 54 year old male presents to the ED with a chief complaint of chest pain onset 1 week. Patient states he has been experiencing chest pain for the past week as well as LT arm/hand numbness. He was laying down when pain began, is also experiencing diarrhea, nauseam shortness of breath. PMHx CKF, HTN, DM, HLD, GERD, TN. Denies headache, dizziness, vomiting, abdominal pain, fever, chills. No other symptoms or modifying factors present at this time. Chief Complaint: Chest Pain Time Seen by MD: 14:51 Primary Care Provider: chenies Reviewed Notes: Nurses Notes, Medications, Allergies Allergies: Coded Allergies: NO KNOWN ALLERGIES (Unverified , 04/23/19) Home Meds Active Scripts Famotidine (PEPCID TABLET) 20 Mg Tb, 1 TAB PO BID PRN for 30 Days, #60 TAB 5 Refills Prov:WILTON OSULLIVAN MD 05/30/24 Gabapentin (Once-Daily) (Gabapentin) 300 Mg Tab, 300 MG PO Q6HP PRN for 10 Days, #40 TAB 2 Refills Prov:WILTON OSULLIVAN MD 05/30/24 Lisinopril (Lisinopril) 5 Mg Tab, 5 MG PO DAILY for 30 Days, #30 TAB 3 Refills Prov:GIOVANI CATES RESIDENT 11/17/23 Carvedilol (COREG) 3.125 Mg Tab, 6.25 MG PO Q12HR for 30 Days, #60 TAB 3 Refills Prov:GIOVANI CATES 11/17/23 Nifedipine (Nifedipine Er) 30 Mg Tab, 60 MG PO DAILY for 30 Days, #60 TAB 3 Refills Prov:GIOVANI CATES RESIDENT 11/17/23 Metformin HCl (Metformin Hydrochloride) 1,000 Mg Tab, 1000 MG PO BID for 30 Days, #60 TAB 3 Refills Prov:GIOVANI CATES 11/17/23 Blood Glucose Monitoring Suppl (D-Care Glucometer Kit/Glu W/Device) 1 Kit Kit, KIT XX, #1 Measure Bloodglucose before eating Prov:GIOVANI CATES 11/17/23 Blood Glucose Monitoring Suppl (D-Care Glucometer Kit/Glu W/Device) 1 Kit Kit, KIT XX, #1 Prov:CHRISSY BAILON MD 11/17/23 Information Source: Patient Mode of Arrival: Ambulatory Severity: Moderate Timing: Weeks Duration: Since onset Prehospital treatment: None Location: Chest (L) Radiation: Arm (L), Hand (L) Quality: Sharp, Stabbing Onset: At Rest Cardiac Risk Factors: Smoker, Family History, Hyperlipidemia, HTN, Diabetes PE Risk Factors: None History of: TN Modifying Factors: Nothing Associated Signs and Symptoms: Other (LT arm numbness) Past Medical History PAST MEDICAL HISTORY: CKF, DM, GERD, High Lipids, HTN, TN Surgical History (Other): spinal fusion, knee surgery Family History Family History: Family hx of Cancer, Family hx of heart annmarie Social History Smoker: Cigarettes Alcohol: Denies ETOH Use Drugs: Marijuana Lives In: Home Constitutional: denies: chills, diaphoresis, fatigue, fever, malaise, sweats, weakness, others EENTM: denies: blurred vision, double vision, ear bleeding, ear discharge, ear drainage, ear pain, ear ringing, eye pain, eye redness, hearing loss, mouth pain, mouth swelling, nasal discharge, nose bleeding, nose congestion, nose pain, photophobia, tearing, throat pain, throat swelling, voice changes, others Respiratory: denies: cough, hemoptysis, orthopnea, SOB at rest, shortness of breath, SOB with excertion, stridor, wheezing, others Cardiovascular: reports: chest pain; denies: dizzy spells, diaphoresis, Dyspnea on exertion, edema, irregular heart beat, left arm pain, lightheadedness, palpitations, PND, syncope, others Gastrointestinal: denies: abdomen distended, abdominal pain, blood streaked bowels, constipated, diarrhea, dysphagia, difficulty swallowing, hematemesis, melena, nausea, poor appetite, poor fluid intake, rectal bleeding, rectal pain, vomiting, others Genitourinary: denies: burning, dysuria, flank pain, frequency, hematuria, incontinence, penile discharge, penile sore, pain, testicle pain, testicle swelling, urgency, others Neurological: reports: numbness (LT arm); denies: dizziness, fainting, headache, left sided numbness, left sided weakness, paresthesia, pre-existing deficit, right sided numbness, right sided weakness, seizure, speech problems, tingling, tremors, weakness, others Musculoskeletal: denies: back pain, gout, joint pain, joint swelling, muscle pain, muscle stiffness, neck pain, others Integumetry: denies: bruises, change in color, change in hair/nails, dryness, laceration, lesions, lumps, rash, wounds, others Allergic/Immunocompromised: denies: Difficulty Healing, Frequent Infections, Hives, Itching, others Endocrine: denies: excessive hunger, excessive sweating, excessive thirst, excessive urination, flushing, intolerance to cold, intolerance to heat, unexplained weight gain, unexplained weight loss, others Psychiatric: denies: anxiety, bipolar disorder, depression, hopeless, panic disorder, schizophrenia, sleepless, suicidal, others All Other Systems: Reviewed and Negative Physical Exam General Appearance: Moderate Distress HEENT: Normal ENT Inspection, Pharynx Normal, TMs Normal Neck: Full Range of Motion, Non-Tender, Normal, Normal Inspection Respiratory: Chest Non-Tender, Lungs Clear, No Accessory Muscle Use, No Respiratory Distress, Normal Breath Sounds Cardiovascular: No Edema, No JVD, No Murmur, No Gallop, Normal Peripheral Pulses, Regular Rate/Rhythm Breast Exam: Deferred Gastrointestinal: No Organomegaly, Non Tender, No Pulsatile Mass, Normal Bowel Sounds, Soft Genitalia: Deferred Pelvic: Deferred Rectal: Deferred Extremities: No calf tenderness, Normal capillary refill, Normal inspection, Normal range of motion, Non-tender, No pedal edema Musculoskeletal : Apperance: Normal Neurologic: Alert, counterintelligence/humint specialist II-XII nml as Tested, No Motor Deficits, Normal Affect, Normal Mood, No Sensory Deficits Cerebellar Function: Normal Reflexes: Normal Skin: Dry, Normal Color, Warm Lymphatic: No Adenopathy EKG EKG : Pulse Rate (adult): 113 Cardiac Rhythm: ST (113 bpm) Comments tachycardic 113 bpm Was a procedure done? Was a procedure done?: No CP Differential Dx Differential Diagnosis: Angina, [place], Pulmonary Embolus Differential Diagnosis: CHF Differential Diagnosis: Pericarditis X-Ray, Labs, Meds, VS Vital Signs Date Time Temp Pulse Resp B/P (MAP) Pulse Ox O2 Delivery O2 Flow Rate FiO2 06/20/24 15:48 87 06/20/24 15:37 110 19 99 Room Air* 0 21 06/20/24 15:37 98.3 110 19 139/95 (110) 99 98.3 06/20/24 14:51 97.9 116 18 161/102 (121) 98 97.9 06/20/24 14:48 113 Lab Test 06/20/24 15:57 06/20/24 15:06 Range/Units Troponin I High Sensitivity 3 L 3 L </=54 ng/L White Blood Count 7.2 4.4-10.8 10^3/uL Red Blood Count 4.22 L 4.5-5.90 10^6/uL Hemoglobin 13.0 L 13.5-17.5 g/dL Hematocrit 38.9 L 41.0-53.0 % Mean Corpuscular Volume 92.2 80.0-100.0 fL Mean Corpuscular Hemoglobin 30.9 28.0-32.0 pg Mean Corpuscular Hemoglobin Concent 33.5 32.0-36.0 g/dL Red Cell Distribution Width 15.1 H 11.8-14.3 % Platelet Count 300 140-450 10^3/uL Mean Platelet Volume 6.9 6.9-10.8 fL Neutrophils (%) (Auto) 73.5 37.0-80.0 % Lymphocytes (%) (Auto) 16.4 10.0-50.0 % Monocytes (%) (Auto) 9.4 0.0-12.0 % Eosinophils (%) (Auto) 0.3 0.0-7.0 % Basophils (%) (Auto) 0.4 0.0-2.0 % Neutrophils # (Auto) 5.3 1.6-8.6 10 ^3/uL Lymphocytes # (Auto) 1.2 0.4-5.4 10 ^3/uL Monocytes # (Auto) 0.7 0-1.3 10 ^3/uL Eosinophils # (Auto) 0 0-0.8 10 ^3/uL Basophils # (Auto) 0 0-0.2 10 ^3/uL Nucleated Red Blood Cells 0.1 % D-Dimer, Quantitative 0.58 H 0.0-0.49 mg/L FEU Sodium Level 141 136-145 mmol/L Potassium Level 3.8 3.5-5.1 mmol/L Chloride Level 110 H 98-107 mmol/L Carbon Dioxide Level 23 20-31 mmol/L Anion Gap 8 5-15 Blood Urea Nitrogen 16 9-23 mg/dL Creatinine 0.98 0.700-1.30 mg/dL Glomerular Filtration Rate Calc 93 >90 mL/min BUN/Creatinine Ratio 16.3 10.0-20.0 Serum Glucose 172 H 74-106 mg/dL Calcium Level 9.8 8.7-10.4 mg/dL B-Type Natriuretic Peptide 11.69 0-100 pg/mL Current Medications Medications (Trade) Dose Ordered Sig/Tere Route Start Time Stop Time Status Last Admin Aspirin 162 mg ONCE ONCE PO 06/20/24 15:15 06/20/24 15:16 DC 06/20/24 15:33 Acetaminophen (Tylenol Tablet) 650 mg ONCE ONCE PO 06/20/24 15:45 06/20/24 15:46 DC 06/20/24 15:52 Ondansetron HCl (Zofran Po) 4 mg ONCE ONCE PO 06/20/24 15:45 06/20/24 15:46 DC 06/20/24 15:46 PROCEDURE(s): CXRP - CHEST PORTABLE Impression: Frontal chest radiograph demonstrates no acute osseous or superficial soft tissue abnormalities. The trachea is midline. The cardiac silhouette and mediastinum are within normal limits. No pneumothorax, pleural effusions, or consolidations. The patient was given aspirin here in the emergency department's The patient was given acetaminophen 650 mg by mouth The patient was given Zofran 4 mg by mouth The patient's CBC and chemistry panel are within normal limits The troponin level x2 is negative The patient continues to have some chest pressure We are going to get a Cardiology consult as well The patient was diagnosis is acute myocardial ischemia Images Reviewed?: Images reviewed and evaluated by me Time of 1ST Reevaluation: 15:21 Reevaluation 1ST: Unchanged Patient Education/Counseling: Diagnosis, Treatment, Prognosis Family Education/Counseling: No Family Present Departure 1 Departure Time of Disposition: 18:50 Impression: Primary Impression: Acute chest pain Additional Impression: Acute myocardial ischemia Disposition: 09 ADMITTED INPATIENT Admit to: Tele Condition: Fair Critical Care Note Critical Care Time?: No Stability Stability form required: Yes Unstable for transfer: Telemetry monitoring (Telemetry monitoring required), ED Physician Assesment (Clinical assesment) Heart Score Heart Score: Heart Score Response (Comments) Value History Moderate Suspicious 1 EKG Repolarization Disturb 1 Age 45-64 1 Risk Factors >3 or Hx ASHD 2 Troponin Normal limit 0 Total 5 I personally scribed for CURTIS ROCHA MD ([email or web address]) on 06/20/24 at 15:08. Electronically submitted by Ana Lilia Ramirez ([email or web address]). I personally scribed for CURTIS ROCHA MD ([email or web address]) on 06/20/24 at 16:17. Electronically submitted by Ana Lilia Ramirez ([email or web address]). CURTIS ROCHA MD Jun 20, 2024 15:08
[2024-06-20 15:23] LABS: Basophils # (auto) 0 10 ^3/uL (0-0.2); Basophils % (auto) 0.4 % (0.0-2.0); Eosinophils # (auto) 0 10 ^3/uL (0-0.8); Eosinophils % (auto) 0.3 % (0.0-7.0); Hematocrit 38.9 % (41.0-53.0); Lymphocytes # (auto) 1.2 10 ^3/uL (0.4-5.4); Lymphocytes % (auto) 16.4 % (10.0-50.0); Mean Corpuscular Hemoglobin 30.9 pg (28.0-32.0); Mean Corpuscular Hgb Conc. 33.5 g/dL (32.0-36.0); Mean Corpuscular Volume 92.2 fL (80.0-100.0); Monocytes # (auto) 0.7 10 ^3/uL (0-1.3); Monocytes % (auto) 9.4 % (0.0-12.0); Neutrophils # (auto) 5.3 10 ^3/uL (1.6-8.6); Neutrophils % (auto) 73.5 % (37.0-80.0); Nucleated Red Blood Cells % 0.1 %; Platelet Count (auto) 300 10^3/uL (140-450); Red Blood Cells 4.22 10^6/uL (4.5-5.90); Red Cell Distribution Width 15.1 % (11.8-14.3); White Blood Cell 7.2 10^3/uL (4.4-10.8)
[2024-06-20] MEDS: ASPirin 81 mg TAB PO ONE ×2 (15:33→20:57)
--- NOTE | 2024-06-20 15:36 | DVH ---
EXAM: XY CHEST PORTABLE TECHNIQUE: Single frontal chest radiograph CLINICAL HISTORY: cp COMPARISON: XY CHEST PORTABLE on DOS: 05/30/24, XY CHEST PORTABLE on DOS: 11/15/23, CHEST PORTABLE on D OS: 06/20/20 Findings/Impression: Frontal chest radiograph demonstrates no acute osseous or superficial soft tissue abnormalities. The trachea is midline. The cardiac silhouette and mediastinum are within normal limits. No pneumothorax, pleural effusions, or consolidations.
[2024-06-20 15:37] VITALS: PULSE 110; RESP 19; O2SAT 99
[2024-06-20] MEDS: ACETAMINOPHEN 325 MG TAB PO ONE ×2 (15:42→20:58)
[2024-06-20 15:45] LABS: Potassium 3.8 mmol/L (3.5-5.1); Sodium 141 mmol/L (136-145)
[2024-06-20 15:46] LABS: Anion Gap 8 (5-15); Calcium 9.8 mg/dL (8.7-10.4); Carbon Dioxide 23 mmol/L (20-31)
[2024-06-20] MEDS: ONDANSETRON ODT 4 MG TAB PO ONE ×2 (15:46→20:58)
[2024-06-20] MEDS: HYDROcodone-ACET 5/325MG TAB PO ONE ×2 (15:46→20:58)
--- NOTE | 2024-06-20 15:49 | ECG ---
[facility] Test Date: 2024-06-20 Test Time: 15:48:19 Pat Name: LUH PATEL Department: ER Room: Gender: M Oil Scout: DONTE : 1970 Requested By: DEIDRA RG Order Number: [id number] Reading MD: Ed Carr Measurements Intervals [place] Rate: 87 P: 64 [place]: 146 QRS: 48 QRSD: 88 T: 23 QT: 352 QTc: 424 Interpretive Statements Sinus rhythm Electronically Signed On 06-20-2024 19:23:14 PDT by Ed Carr Please click the below link to view image of tracing.
[2024-06-20 15:51] LABS: BUN/Creatinine Ratio 16.3 (10.0-20.0); Blood Urea Nitrogen 16 mg/dL (9-23)
[2024-06-20 15:59] LABS: Chloride 110 mmol/L (98-107); Glucose 172 mg/dL (74-106)
[2024-06-20] MEDS: IOHEXOL 350 MG/ML 100ML IJ ONE ×3 (19:04→20:50)
[2024-06-20 19:30] VITALS: BP 151/91; PULSE 85; RESP 18; TEMP 99.4; O2SAT 99
--- NOTE | 2024-06-20 19:41 | DVHHP2 ---
Admitting Diagnosis: Chest pain History of Present Illness 54 year old male presents to the ED with a chief complaint of chest pain onset 1 week. Patient states he has been experiencing chest pain for the past week as well as LT arm/hand numbness. He was laying down when pain began, is also experiencing diarrhea, nauseam shortness of breath. PMHx CKF, HTN, DM, HLD, GERD, TX. Denies headache, dizziness, vomiting, abdominal pain, fever, chills. No other symptoms or modifying factors present at this time. PAST MEDICAL HISTORY: CKF, DM, GERD, High Lipids, HTN, TX Surgical History (Other): spinal fusion, knee surgery Family History Family History: Family hx of Cancer, Family hx of heart annmarie Social History Smoker: Cigarettes Alcohol: Denies ETOH Use Drugs: Marijuana Lives In: Home Patient Family History: Diabetes mellitus G8 MOTHER FH: colon cancer G8 MOTHER Allergies: Coded Allergies: NO KNOWN ALLERGIES (Unverified , 04/23/19) Home Meds Active Scripts Famotidine (PEPCID TABLET) 20 Mg Tb, 1 TAB PO BID PRN for 30 Days, #60 TAB 5 Refills Prov:WILTON OSULLIVAN MD 05/30/24 Gabapentin (Once-Daily) (Gabapentin) 300 Mg Tab, 300 MG PO Q6HP PRN for 10 Days, #40 TAB 2 Refills Prov:WILTON OSULLIVAN MD 05/30/24 Lisinopril (Lisinopril) 5 Mg Tab, 5 MG PO DAILY for 30 Days, #30 TAB 3 Refills Prov:GIOVANI CATES RESIDENT 11/17/23 Carvedilol (COREG) 3.125 Mg Tab, 6.25 MG PO Q12HR for 30 Days, #60 TAB 3 Refills Prov:GIOVANI CATES RESIDENT 11/17/23 Nifedipine (Nifedipine Er) 30 Mg Tab, 60 MG PO DAILY for 30 Days, #60 TAB 3 Refills Prov:GIOVANI CATES RESIDENT 11/17/23 Metformin HCl (Metformin Hydrochloride) 1,000 Mg Tab, 1000 MG PO BID for 30 Days , #60 TAB 3 Refills Prov:GIOVANI CATES RESIDENT 11/17/23 Blood Glucose Monitoring Suppl (D-Care Glucometer Kit/Glu W/Device) 1 Kit Kit, KIT XX, #1 Measure Bloodglucose before eating Prov:GIOVANI CATES RESIDENT 11/17/23 Blood Glucose Monitoring Suppl (D-Care Glucometer Kit/Glu W/Device) 1 Kit Kit, KIT XX, #1 Prov:CHRISSY BAILON MD 11/17/23 Vital Signs Vital Signs Date Time Temp Pulse Resp B/P (MAP) Pulse Ox O2 Delivery O2 Flow Rate FiO2 06/20/24 18:51 113 06/20/24 15:37 19 99 Room Air* 0 21 06/20/24 15:37 98.3 139/95 (110) 98.3 Physical Exam Generally 55 years old male, well nourished well developed. Mild distress HEENT-atraumatic normocephalic Heart-regular rate and rhythm . Surgical site and chest is healing Lungs decreased breath sounds lower lung fernandez Abdomen soft nontender nondistended Musculoskeletal-no edema cyanosis Neuro-AO x3, no focal deficits Results Labs Test 06/20/24 15:57 06/20/24 15:06 Range/Units Troponin I High Sensitivity 3 L </=54 ng/L White Blood Count 7.2 4.4-10.8 10^3/uL Red Blood Count 4.22 L 4.5-5.90 10^6/uL Hemoglobin 13.0 L 13.5-17.5 g/dL Hematocrit 38.9 L 41.0-53.0 % Mean Corpuscular Volume 92.2 80.0-100.0 fL Mean Corpuscular Hemoglobin 30.9 28.0-32.0 pg Mean Corpuscular Hemoglobin Concent 33.5 32.0-36.0 g/dL Red Cell Distribution Width 15.1 H 11.8-14.3 % Platelet Count 300 140-450 10^3/uL Mean Platelet Volume 6.9 6.9-10.8 fL Neutrophils (%) (Auto) 73.5 37.0-80.0 % Lymphocytes (%) (Auto) 16.4 10.0-50.0 % Monocytes (%) (Auto) 9.4 0.0-12.0 % Eosinophils (%) (Auto) 0.3 0.0-7.0 % Basophils (%) (Auto) 0.4 0.0-2.0 % Neutrophils # (Auto) 5.3 1.6-8.6 10 ^3/uL Lymphocytes # (Auto) 1.2 0.4-5.4 10 ^3/uL Monocytes # (Auto) 0.7 0-1.3 10 ^3/uL Eosinophils # (Auto) 0 0-0.8 10 ^3/uL Basophils # (Auto) 0 0-0.2 10 ^3/uL Nucleated Red Blood Cells 0.1 % D-Dimer, Quantitative 0.58 H 0.0-0.49 mg/L FEU Sodium Level 141 136-145 mmol/L Potassium Level 3.8 3.5-5.1 mmol/L Chloride Level 110 H 98-107 mmol/L Carbon Dioxide Level 23 20-31 mmol/L Anion Gap 8 5-15 Blood Urea Nitrogen 16 9-23 mg/dL Creatinine 0.98 0.700-1.30 mg/dL Glomerular Filtration Rate Calc 93 >90 mL/min BUN/Creatinine Ratio 16.3 10.0-20.0 Serum Glucose 172 H 74-106 mg/dL Calcium Level 9.8 8.7-10.4 mg/dL B-Type Natriuretic Peptide 11.69 0-100 pg/mL Primary Diagnosis Chest pain rule out ACS Community-acquired pneumonia Plan Start ceftriaxone, azithromycin for broad-spectrum antibiotics Check blood culture and sputum culture IV fluids Chest pain with left arm numbness. Check echo of the heart Cardiology consult NPO midnight Nuclear stress test for tomorrow Pain control Bowel regimen Antiemetic Cardiac diet Full code Lovenox for DVT prophylaxis PPI for GI prophylaxis Plan discussed with: Patient Problems List: (1) Pneumonia (2) Acute chest pain Status: Acute Date of Service: Jun 20, 2024 Billing Provider: GENI MIN MD Common Visit Codes: [id number] INP/OBS CARE (HIGH) GENI MIN MD Jun 20, 2024 19:41
[2024-06-20] MEDS ORDERED: ONDANSETRON HCL 4 MG/2 ML VIAL IV PRN (19:45)
[2024-06-20] MEDS ORDERED: LACTATED RINGER'S 1,000 ML IV ONE (19:45)
[2024-06-20] MEDS ORDERED: MORPHINE SULFATE INJ 2 MG/ml SYRG IV PRN ×2 (19:45→20:45)
[2024-06-20] MEDS ORDERED: DOCUSATE SOD 100 MG CAP PO PRN ×2 (19:45→20:45)
[2024-06-20] MEDS ORDERED: cefTRIAXone 1GM/50ML D5W 50 ML IV SCH (19:45)
[2024-06-20] MEDS ORDERED: NITROGLYCERIN 0.4 MG SL TAB SL PRN ×2 (19:45→20:45)
[2024-06-20] MEDS ORDERED: HYDROmorphone HCL 2 MG/ML VL/or syr IV PRN ×2 (19:45→20:45)
[2024-06-20] MEDS ORDERED: HYDROcodone-ACET 5/325MG TAB PO PRN ×2 (19:45→20:45)
[2024-06-20] MEDS ORDERED: AZITHROMYCIN 500MG/ 250ML 250 ML IV SCH (19:45)
[2024-06-20] MEDS ORDERED: DEXTROSE (50%) 50ML SYRG IV PRN ×2 (19:45→20:45)
[2024-06-20] MEDS ORDERED: ACETAMINOPHEN 325 MG TAB PO PRN ×2 (19:45→20:45)
[2024-06-20] MEDS: LACTATED RINGER'S 1,000 ML IV ONE (20:53)
--- NOTE | 2024-06-20 21:10 | DVH ---
Procedure: CT CT ANGIO CHEST CONTRAST Reason for study/Clinical History: r/o PE Comparison Study: None available at time of dictation. Exam Date: 06/20/2024 08:27 PM Radiation Dose Information: CT Dose: CTDI volume is 21.57 mGy. Dose-length product is 865.07 mGy*cm Contrast: Type of contrast: Omnipaque 350 Contrast inject: 100 mL Contrast wasted:0 TECHNIQUE: After the uneventful administration of intravenous contrast intravenously, CT imaging was performed through the chest. Coronal and sagittal reformations were performed by the technologist. There are no 3D reconstructions of the pulmonary arteries or MIP images submitted for evaluation. FINDINGS: Lower Neck: Visualized portions of the thyroid gland are unremarkable. Aorta and Vasculature: Normal caliber of thoracic aorta. Lymph Nodes: No enlarged intrathoracic lymph nodes. Mediastinum: Heart size is normal. There is no pericardial effusion. The esophagus is unremarkable. Lungs: No focal consolidation, pleural effusion or significant pneumothorax. No suspicious pulmonary nodule or mass. Musculoskeletal: No acute osseous abnormality. Upper abdomen: Cholelithiasis IMPRESSION: 1. .No pulmonary emboli or findings of pulmonary artery hypertension. 2. There are no infiltrates or effusions. 3. Cholelithiasis. 4. There is no 3D reconstructions of the pulmonary circulation. All CT scans at this medical facility are performed using dose modulation techniques as appropriate t o a performed exam including the following: Automated exposure control was utilized; adjustment of th e MA and/or KV according to patient size; and use of iterative reconstruction technique. HS:Y
[2024-06-20 21:42] LABS: Urine Bacteria None Seen /hpf (None Seen)
[2024-06-20 21:49] LABS: Urine Blood Negative /uL (Negative); Urine Clarity Clear (Clear); Urine Color Yellow (Yellow); Urine Mucus FEW (None Seen); Urine Protein, UAD Negative (Negative); Urine Specific Gravity 1.035 (1.001-1.035); Urine Squamous Epithelial Cell FEW /hpf (<5); Urine Urobilinogen Normal (Negative); Urine WBC 1 /HPF (0-3); Urine pH 5.5 (5.0-9.0)
[2024-06-20] MEDS ORDERED: ACCU-CHEK COMFORT CURVE STRIP VI SCH (22:00)
[2024-06-20] MEDS: ACCU-CHEK COMFORT CURVE STRIP VI SCH (22:00)
[2024-06-20] MEDS ORDERED: InsuLIN REG 1unit/0.01ml Soln (100units/ml) SC SCH (22:00)
[2024-06-20] MEDS ORDERED: SODIUM CHLOR 0.9% PF (SALINE LOCK) 10ML VIAL/SYR IV SCH (22:00)
[2024-06-20] MEDS ORDERED: CARVEDILOL 3.125 MG TAB PO SCH (22:00)
[2024-06-20] MEDS: InsuLIN REG 1unit/0.01ml Soln (100units/ml) SC SCH (22:00)
[2024-06-20 22:02] LABS: Amphetamine Screen, Urine Neg (NEGATIVE); Barbiturate Scree,Urine Neg (NEGATIVE); Benzodiazephine Screen, Urine Neg (NEGATIVE); Cannabinoid Screen, Urine Pos (NEGATIVE); Cocaine Screen, Urine Neg (NEGATIVE); Opiate Scree,Urine Neg (NEGATIVE); Phencyclidine Screen, Urine Neg (NEGATIVE)
[2024-06-20] MEDS: CARVEDILOL 3.125 MG TAB PO SCH (22:53)
[2024-06-20] MEDS: SODIUM CHLOR 0.9% PF (SALINE LOCK) 10ML VIAL/SYR IV SCH (23:01)
[2024-06-20] MEDS: ONDANSETRON HCL 4 MG/2 ML VIAL IV PRN (23:57)
--- NOTE | 2024-06-21 06:50 | ECG ---
[facility] Test Date: 2024-06-20 Test Time: 14:48:36 Pat Name: LUH PATEL Department: ER Room: [address] [place] [address] Gender: M [employer] Porter: DR BOONEB: 1970 Requested By: DEIDRA RG Order Number: [id number] Reading MD: Ed Carr Measurements Intervals [place] Rate: 113 P: 50 MD: 142 QRS: 35 QRSD: 85 T: -18 QT: 327 QTc: 449 Interpretive Statements Sinus tachycardia Borderline T abnormalities, diffuse leads Electronically Signed On 06-23-2024 22:31:31 PDT by Ed Carr Please click the below link to view image of tracing.
[2024-06-21] MEDS ORDERED: ENOXAPARIN SOD 40 MG/0.4 ML SYRINGE SC SCH ×2 (10:00)
[2024-06-21] MEDS ORDERED: AZITHROMYCIN 500MG/ 250ML 250 ML IV SCH (10:00)
[2024-06-21] MEDS ORDERED: LISINOPRIL 5 MG TAB PO SCH ×2 (10:00)
[2024-06-21] MEDS ORDERED: FAMOTIDINE 20 MG TAB PO SCH ×2 (10:00)
[2024-06-21] MEDS ORDERED: NIFEdipine ER 30 MG TAB PO SCH ×2 (10:00)
[2024-06-21] MEDS ORDERED: PATIENTS OWN MEDICATION (Gabapentin (Once-Daily) (Gabapentin) 300 MG) PO SCH ×2 (10:00)
[2024-06-21] MEDS ORDERED: cefTRIAXone 1GM/50ML D5W 50 ML IV SCH (10:00)
== END 2024-06-21 23:47 | disposition left against medical advice (07) | DRG 198 ==
LOC: ER 14:42 → OVERFLOW 19:31
PROVIDERS: ADMIT Nurse Practitioner Acute Care; ATTEND Nurse Practitioner Acute Care
DX: I24.9 Acute ischemic heart disease, unspecified (principal); I51.3 Intracardiac thrombosis, not elsewhere classified; E78.5 Hyperlipidemia, unspecified; I10 Essential (primary) hypertension; Z53.29 Procedure and treatment not carried out because of patient's decision for other reasons; K21.9 Gastro-esophageal reflux disease without esophagitis; F17.210 Nicotine dependence, cigarettes, uncomplicated; Z79.899 Other long term (current) drug therapy; Z98.1 Arthrodesis status; Z79.84 Long term (current) use of oral hypoglycemic drugs; Z80.0 Family history of malignant neoplasm of digestive organs; Z83.3 Family history of diabetes mellitus
CPT/HCPCS: 36415; 71045; 71275; 80048; 80307; 81001; 82962; 83880; 84484; 85025; 85379; 93005; G0378; J2405; Q0162

== ENCOUNTER 2024-12-08 09:36 | Outpatient (CLI) | payer MEDICAID ==
[2024-12-08 10:09] LABS: Hematocrit 41.6 % (41.0-53.0); Hemoglobin 14.1 g/dL (13.5-17.5); Mean Corpuscular Hemoglobin 30.8 pg (28.0-32.0); Mean Corpuscular Volume 91.1 fL (80.0-100.0); Nucleated Red Blood Cells % 0.0 %
[2024-12-08 10:24] LABS: Urine Protein, UAD Negative (Negative)
[2024-12-08 10:30] LABS: Albumin 4.1 g/dL (3.2-4.8); Alkaline Phosphatase 63 U/L (46-116); Anion Gap 5 (5-15); BUN/Creatinine Ratio 11.7 (10.0-20.0); Bilirubin, Total 0.5 mg/dL (0.2-1.0); Blood Urea Nitrogen 13 mg/dL (9-23); Calcium 9.3 mg/dL (8.7-10.4); Carbon Dioxide 25 mmol/L (20-31); Cholesterol 188 mg/dL (< 200); Potassium 4.0 mmol/L (3.5-5.1); Sodium 142 mmol/L (136-145); Total Protein 7.5 g/dL (5.7-8.2); Triglycerides 132 mg/dL (< 150)
[2024-12-08 10:32] LABS: Alanine Aminotransferase 9 U/L (7-40); Chloride 112 mmol/L (98-107); Glucose 160 mg/dL (74-106); HDL Cholesterol 38 mg/dL (40-59)
== END 2024-12-08 17:00 | disposition home or self-care (01) ==
LOC: LAB 09:36
PROVIDERS: ATTEND Internal Medicine
DX: I12.9 Hypertensive chronic kidney disease with stage 1 through stage 4 chronic kidney disease, or unspecified chronic kidney disease (principal); E11.22 Type 2 diabetes mellitus with diabetic chronic kidney disease; N18.9 Chronic kidney disease, unspecified; Z79.899 Other long term (current) drug therapy
CPT/HCPCS: 36415; 80053; 80061; 81001; 82043; 82306; 83036; 84153; 84443; 85025